=== PATIENT | male | born 1965 | race Caucasian/White ===

== ENCOUNTER → 2023-06-26 06:27 | Day surgery (SDC) | payer OTHER, SELFPAY ==
[2023-06-26 07:44] LABS: Glucose - Point of Care 182 mg/dl (70-99)
== END ==
LOC: GI 06:27
PROVIDERS: ATTENDING PHYSICIAN Internal Medicine Gastroenterology
DX: Z12.11 Encounter for screening for malignant neoplasm of colon (principal); R19.5 Other fecal abnormalities; K57.30 Diverticulosis of large intestine without perforation or abscess without bleeding; K64.8 Other hemorrhoids
CPT/HCPCS: 45385; 88305; 82962; 88342

== ENCOUNTER → 2023-07-15 08:37 | Outpatient (REF) | payer OTHER, SELFPAY | LOC: HWRAD 08:37 | PROVIDERS: ATTENDING PHYSICIAN Internal Medicine Gastroenterology; FAMILY PHYSICIAN Family Medicine | DX: Z85.038 Personal history of other malignant neoplasm of large intestine (principal) | CPT/HCPCS: 74178; Q9967 ==

== ENCOUNTER 2024-07-01 06:19 | Day surgery (SDC) | payer OTHER, SELFPAY ==
[2024-07-01 12:38] LABS: Glucose - Point of Care 101 mg/dl (70-99)
== END 2024-07-01 13:43 | disposition home or self-care (01) ==
LOC: GI 06:19
PROVIDERS: ATTENDING PHYSICIAN Internal Medicine Gastroenterology
DX: Z08 Encounter for follow-up examination after completed treatment for malignant neoplasm (principal); Z85.038 Personal history of other malignant neoplasm of large intestine; K57.30 Diverticulosis of large intestine without perforation or abscess without bleeding; K64.8 Other hemorrhoids
CPT/HCPCS: 45378; 82962